=== PATIENT | female | born 1990 | race Caucasian/White ===

== ENCOUNTER → 2016-12-01 | Outpatient (CLI) | payer OTHER | LOC: FIMAGING 07:57 | PROVIDERS: ATTEND Family Medicine | DX: E04.9 Nontoxic goiter, unspecified (principal) ==

== ENCOUNTER 2018-05-01 03:14 | Emergency (ER) | payer OTHER ==
--- NOTE | 2018-05-01 03:28 | EDPHY ---
H & P Stated Complaint: Vomiting, diarhoea, chills yesterday-?Subway contact Norovirus Time Seen by Provider: 05/01/18 03:27 HPI/ROS: CHIEF COMPLAINT: Nausea vomiting and diarrhea HISTORY OF PRESENT ILLNESS: This is a previously healthy 27-year-old female who is compliant on her control pills. She became ill beginning 4:00 p.m. Some 13 hr ago. At that point she started having episodes of emesis as well as dry heaves. She speculates at approximately 20. There has been some diarrhea but not as much. The emesis is nonbloody as well as the diarrhea. There has been plenty of I will however. Per se she is not having abdominal pain. Nor is any flank pain or dysuria frequency. Antecedent to this she been feeling well. She recalls eating lunch she yesterday at around noon and not feeling so well that afternoon and then vomiting as of 4 p.m. 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 There has been quite a few people there ill with both influenza norovirus. Likewise other staff members at work have been ill. 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 Of note they all went [place] [employer] on the evening of the together and had a sandwich around 7:00 p.m. Antibiotics: None Bad Food: None Bad Water: None Recent Surgery: None REVIEW OF SYSTEMS: Constitutional: No fever, no chills. Eyes: No discharge ENT: No sore throat. Cardiovascular: No chest pain, no palpitations. Respiratory: No cough, shortness of breath, or wheezing. Gastrointestinal: See above. Genitourinary: No hematuria or frequency. Musculoskeletal: No back pain. Skin: No rashes. Neurological: Mild headache developed slowly well after onset of illness A 10 system review of systems was performed and is negative except for the noted findings in the HPI. Source: Patient Exam Limitations: No limitations - Personal History LMP (Females 10-55): 15-21 Days Ago Tetanus Vaccine Date: 2014 - Medical/Surgical History Hx Asthma: No Hx Chronic Respiratory Disease: No Hx Diabetes: No Hx Cardiac Disease: No Hx Renal Disease: No Hx Cirrhosis: No Hx Alcoholism: No Hx HIV/AIDS: No Hx Splenectomy or Spleen Trauma: No Other PMH: Denies. - Social History Smoking Status: Never smoked Alcohol Use: None Drug Use: None - Physical Exam Exam: General Appearance: Alert, no distress. Afebrile. Normal phonation. No respiratory distress. Eyes: Pupils equal and round no pallor or injection. No icterus ENT, Mouth: Mucous membranes moderately dry Pharynx without erythema or exudate. TM Clear. Neck: No adenopathy. Supple. No JVD. Trachea in midline. Respiratory: There are no retractions, lungs are clear to auscultation. Cardiovascular: Regular rate and rhythm, without murmur. Abdomen: Soft and nontender, no masses, bowel sounds normal. . Neurological: Ox3. No motor weakness. Sensation intact. Gait nl. Skin: Warm and dry, no rashes. Musculoskeletal: No joint swelling. Extremities: No edema. Homans sign negative. No cords. Psychiatric: Normal affect. Constitutional: Initial Vital Signs Temperature (C) 37.1 C 05/01/18 03:21 Heart Rate 77 05/01/18 03:21 Respiratory Rate 16 05/01/18 03:21 Blood Pressure 127/82 H 05/01/18 03:21 O2 Sat (%) 97 05/01/18 03:21 O2 Delivery Mode Room Air Allergies/Adverse Reactions: No Known Allergies Allergy (Verified 05/09/12 21:45) Home Medications: Medication Instructions Recorded No Medications [No Known] 05/09/12 Ondansetron Odt [Zofran Odt 4 mg 4 mg PO Q4 PRN #4 tab 05/01/18 (*)] Medical Decision Making ED Course/Re-evaluation: An IV is established. She was hydrated with 2 L of normal saline. This was for volume depletion. Additional treatment included 4 mg of IV Zofran. She was given 2 tablets to go [place] markedly better after the IV hydration. She is not scheduled to work until the day of the which time she should be all fine in all improved and if not, that she have a recheck at that point in time Differential Diagnosis: Differential diagnosis includes, but is not limited to: Gastroenteritis, dehydration, cholecystitis, appendicitis, gastritis, mesenteric adenitis, food poisoning, bacterial dysentery. - Data Points Medications Given: Discontinued Medications Sodium Chloride (Ns) 1,000 mls @ 0 mls/hr IV EDNOW ONE; Wide Open PRN Reason: Protocol Stop: 05/01/18 03:31 Last Admin: 05/01/18 03:33 Dose: 1,000 mls Sodium Chloride (Ns) 1,000 mls @ 0 mls/hr IV EDNOW ONE; Wide Open PRN Reason: Protocol Stop: 05/01/18 04:16 Last Admin: 05/01/18 04:17 Dose: 1,000 mls Ondansetron HCl (Zofran) 4 mg IVP EDNOW ONE Stop: 05/01/18 03:31 Last Admin: 05/01/18 03:33 Dose: 4 mg Ondansetron HCl (Zofran Odt 4 Mg Prepack#2) 1 btl TAKEHOME EDNOW ONE Stop: 05/01/18 03:50 Last Admin: 05/01/18 04:48 Dose: 1 btl Departure - Departure Disposition: Home, Routine, Self-Care Clinical Impression: Viral gastroenteritis Condition: Good Instructions: Ondansetron (By mouth) Additional Instructions: Urine maximally contagious for 48 hr, not go to work until May 03 - and only if you are all better Zofran for more nausea - if you are still sick in the afternoon of the you will need to return for further treatment and evaluation In the morning, you start taking fluids and progressive nature and advance her diet in the next 24 hr If possible, to try to confined herself to only 1 bathroom at home and do not share it while your way ill Viral shedding occurs for approximately on average for weeks via rectal route. However, most of the contagious nystagmus results from the vomit. Thereby good handwashing techniques will be all you will need. Stand Alone Forms: Work Excuse Prescriptions: Ondansetron Odt [Zofran Odt 4 mg (*)] 4 mg PO Q4 PRN #4 tab PRN Reason: Nausea and vomiting
[2018-05-01] MEDS ORDERED: NS 1,000 ML IV ONE ×2 (03:30→04:15)
[2018-05-01] MEDS ORDERED: ONDANSETRON 4 MG/2 ML VIAL IVP ONE (03:30)
[2018-05-01] MEDS ORDERED: ONDANSETRON 4MG PREPACK#2 BTL TAKEHOME ONE ×2 (03:49→04:45)
[2018-05-01 05:18] VITALS: BP 126/69
== END 2018-05-01 05:00 | disposition home or self-care (01) ==
LOC: CED 03:14
DX: A08.4 Viral intestinal infection, unspecified (principal); E86.9 Volume depletion, unspecified
CPT/HCPCS: 96374; J2405